=== PATIENT | female | born 1980 | race Caucasian/White ===

== ENCOUNTER 2018-06-08 12:19 | Inpatient (IN) | payer BC ==
--- NOTE | 2018-06-08 12:54 | HP ---
General Information - Reason for Visit SROM, early labor - General Information Maternal Age: 34 Grav: 1 Para: 1 SAB: 0 IEA: 0 Estimated Due Date: 02/11/15 Determined By: LMP Gestational Age in Weeks/Days: 39 Maternal Blood Type and Rh: A Positive - Results this Serology/RPR Result: Non-Reactive Rubella Result: Immune HBsAg Result: Negative HIV Result: Negative GBS Culture Result: Positive Past Medical History Delivery History: Hx Uncomplicated Vaginal Delivery Delivery History Comment: hx PPH Pertinent Past Medical History: See Records - G HTN, asthma Pertinent Past Surgical History: See Records - wisdom teeth, egg retrieval x 1, hysteroscopy Exam Allergies/Adverse Reactions: Allergies No Known Allergies Allergy (Verified 02/08/15 06:43) - Measurements Pre- Weight: 238 lb
[2018-06-08 13:52] LABS: ABS Basophils 0.1 10^3/ul (0-0.2); ABS Eosinophils 0.1 10^3/ul (0-0.6); ABS Lymphocytes 1.5 10^3/ul (1.0-4.8); ABS Monocytes 1.1 10^3/ul (0-0.8); ABS Neutrophils 11.4 10^3/ul (1.5-7.7); ABS Nucleated RBC 0 10^3/ul; Eosinophil % 0.5 % (0-6); Hematocrit 43 % (35-47); Hemoglobin 14.7 g/dl (12.0-16.0); Lymphocyte % 10.8 % (25-47); Mean Corpuscular HGB Conc 34 g/dl (31-36); Mean Corpuscular Hemoglobin 29 pg (27-31); Mean Corpuscular Volume 86 fL (80-97); Mean Platelet Volume 9.7 um3 (7.4-10.4); Nucleated Red Blood Cells % 0.2; Platelet Count 174 10^3/ul (150-450); Red Blood Count 5.05 10^6/ul (4.00-5.40); Red Cell Distribution Width 15 % (10.5-15); White Blood Count 14.1 10^3/ul (3.5-10.8)
[2018-06-09] MEDS ORDERED: Buffered Lidocaine 0.9% SYRIN* 5 ML/SYR SYRINGE ONE (04:37)
[2018-06-09] MEDS ORDERED: Oxytocin in LR* 20 UNITS/1,000 ML BAG IVPB ONE (06:20)
--- NOTE | 2018-06-09 06:21 | PN ---
Progress Note - Progress Note Date of Service: 06/09/18 SOAP: Subjective: [Pt continues irregular mild-moderate ctx. Pt denies increasing discomfort or pressure and reports ctx intensify for a few hours then slow. pt counseled on options and elects to continue with pitocin augmentation. ] Objective: [ BP: 126/73, T: 97.9 FHT: 135bpm, +accels, -decels, moderate variability, ctx q 3-6min mild last cervical check by Alexia Wolff -/-2 Laboratory Tests 06/08/18 06/08/18 13:30 13:30 WBC 14.1 H Plt Count 174 AST 23 ALT 22 ] Assessment: [37 y.o. 39w1d EGA, G HTN.] Plan: [1) Pitocin augmentation start at 3mu and increase per low dose protocol 2) Reviewed risks versus benefits of pitocin augmentation 3) Position changes for descent]
--- NOTE | 2018-06-09 06:26 | HP ---
General Information - Reason for Visit early labor - General Information Maternal Age: 37 Grav: 2 Para: 1 SAB: 0 IEA: 0 Estimated Due Date: 06/16/18 Determined By: LMP Maternal Blood Type and Rh: A Positive - Results this Serology/RPR Result: Non-Reactive Rubella Result: Immune HBsAg Result: Negative HIV Result: Negative GBS Culture Result: Negative Past Medical History Delivery History: Hx Uncomplicated Vaginal Delivery Pertinent Past Medical History: See Records - asthma, IVF , BMI 42, hx PPH Pertinent Past Surgical History: See Records - 2018 egg retrieval, 2000 wisdom teeth extraction Pertinent Family History: See Records - HTN, stroke, CVD, liver CA, DM - Antepartal Records Antepartal Records: Reviewed, Complicated by: - AMA, BMI 42 Review of Systems Constitutional: Uncomfortable CV Complaint: No Respiratory: Shortness of Breath: No Gastrointestinal: No Nausea/Vomiting, Normal Bowel Movement Genitourinary: Leaking Fluid, No Dysuria, No Bleeding Musculoskeletal: Back Pain, Contractions Neurological: No Headache, No Visual Changes Movement: Normal Exam Allergies/Adverse Reactions: Allergies adhesive tape Allergy (Verified 06/08/18 15:22) Rash T:98.5, P:117, R:18, BP: 138/96, O2: 98 Lab Values - Entire Visit: Laboratory Tests 06/08/18 06/08/18 06/08/18 13:30 13:30 13:30 WBC 14.1 H RBC 5.05 Hgb 14.7 Hct 43 MCV 86 MCH 29 MCHC 34 RDW 15 Plt Count 174 MPV 9.7 Neut % (Auto) 80.6 Lymph % (Auto) 10.8 L Terry % (Auto) 7.5 H Eos % (Auto) 0.5 Baso % (Auto) 0.6 Absolute Neuts (auto) 11.4 H Absolute Lymphs (auto) 1.5 Absolute Monos (auto) 1.1 H Absolute Eos (auto) 0.1 Absolute Basos (auto) 0.1 Absolute Nucleated RBC 0 Nucleated RBC % 0.2 Sodium 137 Potassium 4.0 Chloride 109 Carbon Dioxide 22 Anion Gap 6 BUN 9 Creatinine 0.64 Est GFR ( Amer) 127.0 Est GFR (Non-Af Amer) 105.0 BUN/Creatinine Ratio 14.1 Glucose 83 Calcium 9.1 Total Bilirubin 0.40 AST 23 ALT 22 Alkaline Phosphatase 173 H Total Protein 6.2 L Albumin 3.2 Globulin 3.0 Albumin/Globulin Ratio 1.1 Vag Amniotic Fld Detect Negative Blood Type A Positive Antibody Screen Negative - Measurements Height: 5 ft 5 in Weight: 268 lb Weight in lbs: [phone] Body Mass Index (BMI): 44.6 Pre- Weight: 258 lb Weight Gained This : 10 lbs and 0 ozs - Exam Breast: Breast Exam Deferred CVA: No CVA Tenderness Extremities: No Edema Heart: Normal Rhythm/Heart Sounds HEENT: No Significant Findings Lungs: Clear Bilaterally Rectal: Rectal Exam Deferred Reflexes: DTR 2+ Thyroid: No Thyromegaly - Abdominal Exam Abdomen Exam: Fundal Height Consistent with Dates - Ultrasound/Biophysical Profile Ultrasound Status: Not Done Targeted Exam Findings Cervical Exam: 3cm Effacement: 70% Station: -2 Presenting Part: Vertex Membrane Status: Leaking - complete rupture on exam Amniotic Fluid Evaluation: ROM Plus Pending Bleeding/Discharge: None EFM Findings - External Monitor Findings Baseline Heart Rate: 140 External Monitor Findings: Accelerations Present, No Pattern of Variable or Late Decelerations, Variability Moderate, Baseline Stable Contractions: Irregular, Mild, < 45 Seconds Assessment/Plan - Assessment 37 y.o 39 w EGA, G HTN, early labor, AROM - Obstetrical Risk Factors Obstetrical Risk Factors: Gestational Hypertension - Plan Plan: Observe - Date/Time of Admission Date of Admission: 06/08/18 Time of Admission: 13:00
[2018-06-09] MEDS ORDERED: Oxytocin in LR* 20 UNITS/1,000 ML BAG IVPB SCH (07:00)
[2018-06-09] MEDS ORDERED: Glycerin ADULT SUPP PR PRN (13:53)
[2018-06-09] MEDS ORDERED: Dibucaine 1% 28.35 GM TUBE PR PRN (13:53)
[2018-06-09] MEDS ORDERED: Acetaminophen TAB* 325 MG PO PRN (13:53)
[2018-06-09] MEDS ORDERED: Witch Hazel PAD* JAR TOPICAL PRN (13:53)
--- NOTE | 2018-06-09 13:55 | PROCNOTE ---
[facility] OB: Delivery Note - Delivery A Date of : 06/09/18 [place] Sex: Male [place] Weight at : 8 lb 2 oz Score 1 Minute: 8 Score 5 Minutes: 9 Gestational Age in Weeks and Days at Delivery: 39 Weeks and 0 Days Delivery Method: Spontaneous Vaginal Labor: Induced Did Patient attempt ?: N/A, No Previous Amniotic Fluid: Clear Estimated Blood Loss: 400 Anesthesia/Analgesia: None Delivered By: Corina Ross - Nursery Level of Nursery: Regular/Bedside - Perineum Perineal Injury: Bruising, Perineal Laceration, 1st Degree Perineal Repair: By Delivering Practioner - Events Delivery Events of Note: Pitocin During Labor, Post- Bleeding - Meds Given - Additional Delivery Notes Additional Delivery Notes: nuchal cord x 1
[2018-06-09] MEDS ORDERED: Misoprostol TAB* 200 MCG ONE (15:13)
[2018-06-09] MEDS: Ibuprofen TAB* 600 MG PO PRN ×2 (15:42→22:00)
[2018-06-09] MEDS: Docusate CAP* 100 MG PO SCH ×2 (15:42→20:40)
[2018-06-09] MEDS ORDERED: Simethicone TAB* 80 MG TAB.CHEW PO SCH (17:30)
[2018-06-10] MEDS: Ibuprofen TAB* 600 MG PO PRN (04:42)
[2018-06-10 07:33] LABS: ABS Basophils 0 10^3/ul (0-0.2); ABS Eosinophils 0.1 10^3/ul (0-0.6); ABS Lymphocytes 2.2 10^3/ul (1.0-4.8); ABS Neutrophils 11.3 10^3/ul (1.5-7.7); ABS Nucleated RBC 0 10^3/ul; Eosinophil % 0.9 % (0-6); Hematocrit 30 % (35-47); Hemoglobin 10.5 g/dl (12.0-16.0); Lymphocyte % 14.9 % (25-47); Mean Corpuscular HGB Conc 35 g/dl (31-36); Mean Corpuscular Hemoglobin 30 pg (27-31); Mean Corpuscular Volume 86 fL (80-97); Mean Platelet Volume 9.1 um3 (7.4-10.4); Nucleated Red Blood Cells % 0.1; Platelet Count 122 10^3/ul (150-450); Red Blood Count 3.54 10^6/ul (4.00-5.40); Red Cell Distribution Width 15 % (10.5-15); White Blood Count 14.6 10^3/ul (3.5-10.8)
[2018-06-10] MEDS: Docusate CAP* 100 MG PO SCH ×3 (08:10→20:45)
[2018-06-10] MEDS ORDERED: Ferrous Gluconate TAB* 324 MG TAB PO SCH (09:00)
[2018-06-11 08:21] VITALS: BP 119/72
[2018-06-11] MEDS: Docusate CAP* 100 MG PO SCH (09:36)
== END 2018-06-11 14:14 | disposition home or self-care (01) | DRG 560 ==
LOC: MCHOBOUT 12:19 → MCHOB 13:08
PROVIDERS: ADMIT Midwife; ATTEND Midwife
PROC: 10907ZC Drainage of Amniotic Fluid, Therapeutic from Products of Conception, Via Natural or Artificial Opening (ICD-10-PCS; principal; 2018-06-08)
PROC: 10E0XZZ Delivery of Products of Conception, External Approach (ICD-10-PCS; 2018-06-08)
PROC: 4A1HXCZ Monitoring of Products of Conception, Cardiac Rate, External Approach (ICD-10-PCS; 2018-06-08)
PROC: 3E033VJ Introduction of Other Hormone into Peripheral Vein, Percutaneous Approach (ICD-10-PCS; 2018-06-08)
PROC: 0HQ9XZZ Repair Perineum Skin, External Approach (ICD-10-PCS; 2018-06-08)
DX: O13.4 Gestational [pregnancy-induced] hypertension without significant proteinuria, complicating childbirth (principal); Z37.0 Single live birth; O69.1XX0 Labor and delivery complicated by cord around neck, with compression, not applicable or unspecified; Z3A.39 39 weeks gestation of pregnancy; O72.1 Other immediate postpartum hemorrhage; O70.0 First degree perineal laceration during delivery; Z91.048 Other nonmedicinal substance allergy status; J45.909 Unspecified asthma, uncomplicated; O99.52 Diseases of the respiratory system complicating childbirth
CPT/HCPCS: 36415; 80053; 84112; 85025; 86850; 86900; 86901; A9270-GY